=== PATIENT | female | born 1970 | race Hispanic/Latino ===

== ENCOUNTER 2021-05-14 12:39 | Emergency (ER) | payer BC ==
[2021-05-14 13:34] VITALS: BP 130/81
--- NOTE | 2021-05-14 15:50 | Emergency Department Report ---
- General Chief Complaint: Laceration/Recheck/Suture Stated Complaint: CUT WRIST Time Seen by Provider: 05/14/21 15:34 Source: patient Mode of arrival: Ambulatory Limitations: No Limitations - History of Present Illness Initial Comments: 51-year-old female presents to the ER today with complaints of left wrist laceration. Patient states that this occurred at home around 12:30 PM. She states that there was a aquarium tank that was about to fall, and when she reached to push it back on the shelf, her hand went through the tank and she got cut by the broken glass. Laceration is to the volar aspect of the left wrist. She reports bleeding and pain. She is able to move her fingers and her wrist little painful she does have full range of motion of those areas. She states th at she is up-to-date on her immunizations. She reports no additional symptoms at this time. -: hour(s) (1) Location: other (left wrist ) Extremity Location: Left: Wrist Place: home Patient Tetanus UTD: Yes Context: accidental - Related Data Home Medications Medication Instructions Recorded Confirmed Last Taken FLUoxetine [PROzac] 10 mg PO DAILY 04/24/14 04/24/14 Unknown Previous Rx's Medication Instructions Recorded Last Taken Type Lansoprazole (Nf) [Prevacid (Nf)] 30 mg PO QDAY #15 capsule 04/24/14 Unknown Rx HYDROcodone/APAP 5-325 [[place] 1 each PO Q6HR PRN #10 tablet 05/14/21 Unknown Rx 5-325 mg TAB] Ibuprofen [Motrin] 600 mg PO Q8H PRN #30 tablet 05/14/21 Unknown Rx Allergies Allergy/AdvReac Type Severity Reaction Status Date / Time No Known Allergies Allergy Unverified 04/24/14 19:06 ED Review of Systems ROS: Stated complaint: CUT WRIST Other details as noted in HPI Comment: All other systems reviewed and negative Constitutional: denies: chills, fever Eyes: denies: eye pain, eye discharge, vision change ENT: denies: ear pain, throat pain Respiratory: denies: cough, shortness of breath, SOB with exertion, SOB at rest, wheezing Cardiovascular: denies: chest pain, palpitations Gastrointestinal: denies: abdominal pain, nausea, diarrhea, constipation, hematemesis, melena Genitourinary: denies: urgency, dysuria, frequency, hematuria, discharge, abnormal menses, dyspareunia Skin: other (laceration volar left wrist ). denies: rash, lesions, change in color, change in hair/nails, pruritus Neurological: denies: headache, weakness, numbness, paresthesias, confusion, abnormal gait, vertigo Psychiatric: denies: anxiety, depression, auditory hallucinations, visual hallucinations, homicidal thoughts, suicidal thoughts Hematological/Lymphatic: denies: easy bleeding, easy bruising, swollen glands ED Past Medical Hx - Past Medical History Hx Psychiatric Treatment: Yes (depression) - Surgical History Additional Surgical History: Ruptured ovarian cyst - Social History Smoking Status: Current Every Day Smoker Substance Use Type: None - Medications Home Medications: Home Medications Medication Instructions Recorded Confirmed Last Taken Type FLUoxetine [PROzac] 10 mg PO DAILY 04/24/14 04/24/14 Unknown History Lansoprazole (Nf) [Prevacid (Nf)] 30 mg PO QDAY #15 capsule 04/24/14 Unknown Rx HYDROcodone/APAP 5-325 [[place] 1 each PO Q6HR PRN #10 tablet 05/14/21 Unknown Rx 5-325 mg TAB] Ibuprofen [Motrin] 600 mg PO Q8H PRN #30 tablet 05/14/21 Unknown Rx ED Physical Exam - General Limitations: No Limitations General appearance: alert, in no apparent distress - Head Head exam: Present: atraumatic, normocephalic, normal inspection - Eye Eye exam: Present: normal appearance, PERRL, EOMI Pupils: Present: normal accommodation - Respiratory Respiratory exam: Present: normal lung sounds bilaterally. Absent: respiratory distress, wheezes, rales, rhonchi - Cardiovascular Cardiovascular Exam: Present: regular rate, normal rhythm, normal heart sounds - GI/Abdominal GI/Abdominal exam: Present: soft. Absent: distended, tenderness, guarding, rebound - Neurological Exam Neurological exam: Present: alert, oriented X3, CN II-XII intact, normal gait - Psychiatric Psychiatric exam: Present: normal affect, normal mood - Skin Skin exam: Present: other (long linear laceration noted volar aspect of the left wrist there is some mild bleeding but is controlled with pressure, its deep there is no apparent tendon or bony injury. No obvious foreign body. She has full range of motion of the wrist and her fingers.) ED Course Vital Signs 05/14/21 13:31 Temperature 98.4 F Pulse Rate 91 H Respiratory 18 Rate Blood Pressure 130/81 [Right] O2 Sat by Pulse 98 Oximetry - Laceration /Wound Repair Left Volar Wrist Wound Location: upper extremity (Left wrist ) Wound Length (cm): 6 Wound's Depth, Shape: linear Wound Explored: clean Irrigated w/ Saline (ccs): 100 Betadine Prep?: Yes Anesthesia: 1% Lidocaine Volume Anesthetic (ccs): 10 Wound Repaired With: sutures Suture Size/Type: 4:0, proline Number of Sutures: 15 Layer Closure?: No Sterile Dressing Applied?: Yes Progress: Patient tolerated procedure well without any complications. ED Medical Decision Making - Radiology Data Radiology results: report reviewed Patient: BHAVIN LIN MR#: [id number] : 1970 Acct:[id number] Age/Sex: 51 / F ADM Date: 05/14/21 Loc: ED Attending Dr: Ordering Physician: KENNY WEISS Date of Service: 05/14/21 Procedure(s): XR wrist 3+V LT Accession Number(s): [id number] cc: KENNY WEISS Fluoro Time In Minutes: LEFT WRIST 3 VIEWS INDICATION / CLINICAL INFORMATION: Left wrist laceration secondary to broken glass. COMPARISON: None available. FINDINGS: BONES and JOINT(S): No acute fracture or subluxation. No significant arthritis. SOFT TISSUES: A large laceration is seen along the volar aspect of the wrist with secondary edema. No radiopaque foreign body or other significant abnormality. ADDITIONAL FINDINGS: None. IMPRESSION: 1. Left wrist laceration without visualization of a radiopaque foreign body or other acute findings. Signer Name: Davin Harris MD Signed: 05/14/2021 4:29 PM Workstation Name: [id number] Transcribed By: MN Dictated By: Davin Harris MD Electronically Authenticated By: Davin Harris MD Signed Date/Time: 05/14/211628 DD/ 26 TD/TT: Critical care attestation.: If time is entered above; I have spent that time in minutes in the direct care of this critically ill patient, excluding procedure time. ED Disposition Clinical Impression: Wrist laceration Disposition: 01 HOME / SELF CARE / HOMELESS Is pt being admited?: No Does the pt Need Aspirin: No Condition: Stable Instructions: Laceration Care, Adult, [id number], Sutures, [place], or Adhesive Wound Closure, [id number] Additional Instructions: Keep area clean daily with soap and water. dry well after each cleaning. Apply thin layer of neosporin after each cleaning and then cover. Sutures will need to be removed in about 10-12 days. Return sooner if there is any signs and symptoms of infection such as increased redness pain and pus drainage. Take the pain medications as prescribed. Prescriptions: Ibuprofen [Motrin] 600 mg PO Q8H PRN #30 tablet PRN Reason: Pain HYDROcodone/APAP 5-325 [[place] 5-325 mg TAB] 1 each PO Q6HR PRN #10 tablet PRN Reason: Pain Referrals: PRIMARY CARE, [Referring] - 3-5 Days Forms: Work/School Release Form(ED) Time of Disposition: 17:00
[2021-05-14] MEDS ORDERED: HYDROcodone/ACETAMINOPHEN 5-325 MG TAB PO ONE (15:52)
[2021-05-14] MEDS ORDERED: LIDOCAINE (1%) 10 MG/1 ML VIAL 20 ML MDV INFILTRATI ONE (15:52)
--- NOTE | 2021-05-14 16:33 | XRay Report ---
LEFT WRIST 3 VIEWS INDICATION / CLINICAL INFORMATION: Left wrist laceration secondary to broken glass. COMPARISON: None available. FINDINGS: BONES and JOINT(S): No acute fracture or subluxation. No significant arthritis. SOFT TISSUES: A large laceration is seen along the volar aspect of the wrist with secondary edema. No radiopaque foreign body or other significant abnormality. ADDITIONAL FINDINGS: None. IMPRESSION: 1. Left wrist laceration without visualization of a radiopaque foreign body or other acute findings. Signer Name: Davin Harris MD Signed: 05/14/2021 4:29 PM Workstation Name: [id number]
[2021-05-14] MEDS ORDERED: NEOMY 3.5 MG/BACIT 400 UNITS/POLY B 5000 UNITS/GM OINT PACKET TP ONE (17:02)
== END 2021-05-14 17:52 | disposition home or self-care (01) ==
LOC: ED 12:39
DX: S61.512A Laceration without foreign body of left wrist, initial encounter (principal); F32.9 Major depressive disorder, single episode, unspecified; F17.200 Nicotine dependence, unspecified, uncomplicated; Z79.899 Other long term (current) drug therapy; W18.39XA Other fall on same level, initial encounter; Y93.89 Activity, other specified; Y92.89 Other specified places as the place of occurrence of the external cause; Y99.8 Other external cause status
CPT/HCPCS: 12002; 73110; 99283; J3490